=== PATIENT | female | born 1955 | race Caucasian/White ===

== ENCOUNTER → 2018-05-25 | Outpatient (CLI) | payer OTHER ==
[~2018-05-25] MED LIST: AMOX500C3 PO; ASPI81TA28 PO; CARV12.52 PO; CIPR-255 PO; FLAV1TAB3 PO; GLC/500 PO; LISI20TA3 PO; ONDA4TAB65 PO
--- NOTE | 2018-05-25 10:47 | DIAGNOSTIC IMAGING REPORT ---
(SIOMARA/BLAD)RETROPERITON COMP HISTORY: 62 years-old Female N20.0 [id number] Ureteric [id number] follow-up study in a patient with history of nephrolithiasis. No acute symptoms are reported. COMPARISON: CT abdomen and pelvis 04/21/2018 TECHNIQUE: Multiple real-time significant images of the kidneys and bladder were obtained assessing grayscale appearance and color flow FINDINGS: Mildly increased echogenicity of the liver incidentally noted which may reflect fatty infiltration. Right kidney is within normal limits without renal calculi, hydronephrosis or suspicious mass lesion. Left kidney measures 10.4 cm in length. Column of Armen incidentally noted on the left. 1.8 cm cyst with layering calcification again noted about the superior pole left kidney. No left-sided renal calculi or hydronephrosis. Bladder is unremarkable with bilateral ureteral jets noted. IMPRESSION: 1. Unremarkable sonographic appearance of the kidneys without renal calculi or hydronephrosis. 2. Bladder appears to be within normal limits. 3. 1.8 cm cyst with layering calcification redemonstrated within the superior pole left kidney. The above report was generated using voice recognition software. It may contain grammatical, syntax or spelling errors. Electronically signed by: Gio Alves M.D. 05/25/2018 10:46 AM Dictated Date/Time: 05/25/2018 10:43 AM
== END | disposition home or self-care (01) ==
LOC: C.ULTR 10:01
PROVIDERS: ATTEND Urology
DX: N20.2 Calculus of kidney with calculus of ureter (principal)